=== PATIENT | male | born 1945 | race Caucasian/White ===

== ENCOUNTER → 2017-02-19 | Day surgery (SDC) | payer MEDICARE, OTHER ==
[~2017-02-19] MED LIST: Bupivacaine 0.25% 10 ML SDV ONE; Lactated Ringers 1,000 ML IV SCH; Lidocaine 1% 20 ML MDV ONE; ceFAZolin 1 GM Vial IVPUSH ONE
[2017-02-19 09:54] VITALS: BP 155/88
== END ==
LOC: CC.SDS 08:45
PROVIDERS: ATTEND Surgery
DX: K80.10 Calculus of gallbladder with chronic cholecystitis without obstruction (principal)
CPT/HCPCS: J0690; J7120

== ENCOUNTER → 2017-02-21 | Day surgery (SDC) | payer MEDICARE, OTHER ==
[~2017-02-21] MED LIST changes: +Acetaminophen/HYDROcodone 325-5 MG Tab PO PRN; +Bupivacaine 0.25% 10 ML SDV INJECT ONE; +Glycopyrrolate 0.2 MG/ML SDV IVPUSH ONE; -Lidocaine 1% 20 ML MDV ONE; +Lidocaine 2% 20 ML MDV INJECT ONE; +Lidocaine 2% 20 ML MDV ONE; +Midazolam 1 MG/ML 2 ML SDV IV ONE; +Morphine 4 MG/ML Syringe IVPUSH PRN; +Ondansetron 4 MG/2 ML SDV IV ONE; +Ondansetron 4 MG/2 ML SDV IVPUSH PRN; +Propofol 200 MG/20 ML SDV IV ONE; +Rocuronium 50 MG/5 ML Vial IV ONE; +Succinylcholine 200 MG/10 ML MDV IV ONE; +ceFAZolin 1 GM Vial ONE; +fentaNYL 100 MCG/2 ML SDV IV ONE
[2017-02-21 18:02] VITALS: BP 123/93
--- NOTE | 2017-02-21 23:45 | OR ---
DATE OF OPERATION: 02/21/2017 PREOPERATIVE DIAGNOSIS: CHRONIC CHOLECYSTITIS WITH CHOLELITHIASIS. POSTOPERATIVE DIAGNOSIS: CHRONIC CHOLECYSTITIS WITH CHOLELITHIASIS. SURGEON: Praneeth Vanegas MD PROCEDURE: LAPAROSCOPIC CHOLECYSTECTOMY. ANESTHESIA: General. DESCRIPTION OF PROCEDURE: After the patient was anesthetized satisfactorily, patient's abdomen was prepped with iodoform. The patient was given sterile drapes. A small skin incision was made in the midline. It was carried down through the skin, subcutaneous tissue, down through deep fascia. Deep fascia and peritoneum were opened. An 11 mm blunt trocar was introduced. CO2 gas was insufflated. Under direct camera vision, another 11-mm trocar was introduced in the subxiphoid space and a 5 mm in the right upper quadrant. Gallbladder was held in position, it had quite a few adhesions to the surrounding tissues, these adhesions were taken down, then dissection was carried out both cystic duct and cystic artery were exposed. Junction of the cystic duct with common bile duct and gallbladder was exposed. Both cystic artery and cystic duct were clipped and divided. Then gallbladder was taken off its bed with the help of hook cautery, and it was removed from the peritoneal cavity using Endopouch. Hemostasis was examined, it was satisfactory, CO2 gas was desufflated out. The fascia was closed with zero Ethibond running sutures. Skin was closed with 4-0 Vicryl subcuticular sutures. The patient was given sterile dressing. He tolerated the procedure well and left the operating room in satisfactory condition. CELESTINO/KASH /[id number]
== END ==
LOC: CC.SDS 11:01
PROVIDERS: ATTEND Surgery
DX: K80.10 Calculus of gallbladder with chronic cholecystitis without obstruction (principal); K21.9 Gastro-esophageal reflux disease without esophagitis; E78.5 Hyperlipidemia, unspecified; I47.1 Supraventricular tachycardia; E55.9 Vitamin D deficiency, unspecified; Z79.82 Long term (current) use of aspirin; Z79.899 Other long term (current) drug therapy; Z98.890 Other specified postprocedural states; Z78.9 Other specified health status
CPT/HCPCS: 47562; A9270; J0330; J0690; J2250; J2405; J2704; J3010; J7120; 00790; 88304